=== PATIENT | male | born 1950 | race African-American/Black ===

== ENCOUNTER 2018-09-07 09:59 | Emergency (ER) | payer MEDICARE, MEDICAID ==
[~2018-09-07] VITALS: Ht 167.6 cm; Wt 99.0 kg
[2018-09-07] MEDS ORDERED: tylenol # 3 (10:58)
[2018-09-07] MEDS ORDERED: flomax (10:58)
[2018-09-07] MEDS ORDERED: TRAMADOL 50MG TABLET PO ONE (11:15)
[2018-09-07 12:04] VITALS: BP 139/74
== END 2018-09-07 12:21 | disposition home or self-care (01) ==
LOC: ER 11:02
DX: M25.511 Pain in right shoulder (principal); M19.011 Primary osteoarthritis, right shoulder; M54.12 Radiculopathy, cervical region; I10 Essential (primary) hypertension; N40.0 Benign prostatic hyperplasia without lower urinary tract symptoms; Z96.649 Presence of unspecified artificial hip joint
CPT/HCPCS: 72040; 73030; 99283; A4565